=== PATIENT | male | born 1985 | race African-American/Black ===

== ENCOUNTER 2016-11-01 17:56 | Emergency (ER) | payer SELFPAY ==
[~2016-11-01] VITALS: Ht 172.7 cm; Wt 90.7 kg
[~2016-11-01 17:56] MED LIST: ACET-704 PO; AMOX1TAB61 PO; METH4TAB2 PO; NAPR500T8 PO
[2016-11-01 18:17] VITALS: BP 143/89
[2016-11-01] MEDS ORDERED: ALBUTEROL SULFATE 2.5 MG/3 ML NEBU. NEB ONE (19:00)
[2016-11-01] MEDS ORDERED: CEFTRIAXONE IM 1 GM VIAL. IM ONE (19:15)
[2016-11-01 19:18] LABS: OBC FLU VALID
[2016-11-01] MEDS ORDERED: PROAIR HFA8.5 GM INH (19:25)
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
== END 2016-11-01 19:42 | disposition home or self-care (01) ==
LOC: ER 17:56
DX: J11.1 Influenza due to unidentified influenza virus with other respiratory manifestations (principal); J45.909 Unspecified asthma, uncomplicated; Z79.899 Other long term (current) drug therapy; Z21 Asymptomatic human immunodeficiency virus [HIV] infection status
CPT/HCPCS: 87804; 94250; 94640; 96372; 99284; J0696

== ENCOUNTER 2016-12-08 15:57 | Emergency (ER) | payer SELFPAY ==
[~2016-12-08] VITALS: Ht 172.7 cm; Wt 90.7 kg
[~2016-12-08 15:57] MED LIST changes: +PROAIR HFA8.5 GM INH
[2016-12-08 16:07] VITALS: BP 124/73
[2016-12-08] MEDS ORDERED: HYDR-971 PO (16:30)
[2016-12-08] MEDS ORDERED: AMOX500C PO (16:30)
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
[2016-12-08] MEDS ORDERED: PENICILLIN G BENZATHINE LA 1,200,000 UNIT/2 ML DISP.SYRIN. IM ONE (16:45)
== END 2016-12-08 16:45 | disposition home or self-care (01) ==
LOC: ER 15:57
DX: K04.7 Periapical abscess without sinus (principal); J45.909 Unspecified asthma, uncomplicated; Z21 Asymptomatic human immunodeficiency virus [HIV] infection status; Z88.2 Allergy status to sulfonamides
CPT/HCPCS: 96372; 99283; J0561

== ENCOUNTER 2016-12-09 01:47 | Emergency (ER) | payer SELFPAY ==
[~2016-12-09] VITALS: Ht 172.7 cm; Wt 90.7 kg
[~2016-12-09 01:47] MED LIST changes: +AMOX500C PO; +HYDR-971 PO
[2016-12-09 02:10] VITALS: BP 140/85
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
[2016-12-09] MEDS ORDERED: BUPIVACAINE MPF 0.25% 10 ML VIAL. IJ ONE (02:30)
== END 2016-12-09 03:03 | disposition home or self-care (01) ==
LOC: ER 01:47
DX: K04.7 Periapical abscess without sinus (principal); L03.211 Cellulitis of face; J45.909 Unspecified asthma, uncomplicated; Z21 Asymptomatic human immunodeficiency virus [HIV] infection status; Z88.2 Allergy status to sulfonamides
CPT/HCPCS: 64400; 99284; J3490

== ENCOUNTER 2017-11-29 17:27 | Emergency (ER) | payer SELFPAY ==
[2017-11-29 18:18] LABS: BILIRUBIN,URINE NEGATIVE (NEG); CLARITY,URINE CLEAR; GLUCOSE,URINE NEGATIVE (NEG); NITRITE,URINE NEGATIVE (NEG); PH,URINE 5.5; PROTEIN,URINE NEGATIVE (NEG-TRACE)
[2017-11-29 18:29] LABS: COLOR,URINE DK YELLOW
[2017-11-29 18:30] LABS: BACTERIA,URINE 0 /HPF (0-FEW); RBC,URINE 0 /HPF (0-2); SQUAMOUS EPITHELIAL CELL,UR FEW /LPF; WBC,URINE 0 /HPF (0-4)
[2017-11-29] MEDS: cefTRIAXone IM 250 MG VIAL IM (18:47)
[2017-11-29] MEDS: ONDANSETRON ODT 4 MG TAB.RAPDIS. PO (18:48)
[2017-11-29] MEDS: AZITHROMYCIN 250 MG TABLET. PO (18:48)
[2017-11-29] MEDS: metroNIDAZOLE 500 MG TABLET PO (18:48)
== END 2017-11-29 18:51 | disposition home or self-care (01) ==
LOC: ER 17:27
DX: Z11.3 Encounter for screening for infections with a predominantly sexual mode of transmission (principal); J45.909 Unspecified asthma, uncomplicated; Z21 Asymptomatic human immunodeficiency virus [HIV] infection status; Z88.2 Allergy status to sulfonamides
CPT/HCPCS: 81001; 87491; 87591; 96372; 99284; J0696; Q0144; Q0162

== ENCOUNTER 2017-12-05 11:24 | Emergency (ER) | payer SELFPAY ==
[2017-12-05] MEDS: ONDANSETRON PF 4 MG/2 ML VIAL. IV (12:48)
[2017-12-05] MEDS: HYOSCYAMINE 0.125 MG TAB.RAPDIS PO (12:48)
[2017-12-05] MEDS: fentaNYL PF VIAL 100 MCG/2 ML VIAL IV (12:48)
[2017-12-05 12:49] LABS: ADD MAN DIFF? NO
[2017-12-05] MEDS: IV NORMAL SALINE 1000ML BAG 1,000 ML IV (12:50)
[2017-12-05 12:55] LABS: BASO % 1 % (0-3); EOS # 0.5 x10^3/uL (0.0-0.7); EOS % 8 % (0-3); HEMATOCRIT 42.5 % (39.0-53.0); HEMOGLOBIN 14.4 g/dL (13.0-17.5); LYMPH # 2.2 x10^3/uL (1.0-4.8); LYMPH % 36 % (24-48); MEAN CORPUSCULAR HEMOGLOBIN 32 pg (25-35); MEAN CORPUSCULAR HGB CONC 34 g/dL (31-37); MEAN CORPUSCULAR VOLUME 94 fL (79-100); MONO # 0.6 x10^3/uL (0.0-1.1); MONO % 9 % (0-9); NEUT # 2.8 x10^3uL (1.8-7.7); NEUT % 46 % (31-73); PLATELET COUNT 166 x10^3/uL (140-400); RED BLOOD COUNT 4.52 x10^6/uL (4.30-5.70); RED CELL DISTRIBUTION WIDTH 13.2 % (11.5-14.5)
[2017-12-05 13:00] LABS: ANION GAP 6 (6-14); BLOOD UREA NITROGEN 9 mg/dL (8-26); BUN/CREATININE RATIO 10 (6-20); CALCIUM 9.1 mg/dL (8.5-10.1); CARBON DIOXIDE 29 mmol/L (21-32); CHLORIDE 106 mmol/L (98-107); CREATININE 0.9 mg/dL (0.7-1.3); GFR 119.9; GLUCOSE 92 mg/dL (70-99); POTASSIUM 4.2 mmol/L (3.5-5.1); SODIUM 141 mmol/L (136-145)
[2017-12-05 13:06] LABS: ALBUMIN 3.5 g/dL (3.4-5.0); ALBUMIN/GLOBULIN RATIO 0.6 (1.0-1.7); ALK PHOS 123 U/L (46-116); ALT (SGPT) 60 U/L (16-63); AST (SGOT) 39 U/L (15-37); LIPASE 68 U/L (73-393); MAGNESIUM 1.7 mg/dL (1.8-2.4); TOTAL BILIRUBIN 0.3 mg/dL (0.2-1.0); TOTAL PROTEIN 8.9 g/dL (6.4-8.2)
[2017-12-05] MEDS: IOHEXOL 300 MG/ML 100ML VIAL. IV (13:44)
[2017-12-05] MEDS ORDERED: CONTRAST GIVEN MC (14:00)
[2017-12-06 02:15] LABS: C DIFF BY PCR Negative (Negative)
== END 2017-12-05 16:32 | disposition home or self-care (01) ==
LOC: ER 11:24
DX: K52.9 Noninfective gastroenteritis and colitis, unspecified (principal); J45.909 Unspecified asthma, uncomplicated; Z21 Asymptomatic human immunodeficiency virus [HIV] infection status; Z88.2 Allergy status to sulfonamides
CPT/HCPCS: 74177; 80053; 83690; 83735; 85025; 87324; 96361; 96374; 96375; 99285-25; J2405; J3010; J7030; Q9967

== ENCOUNTER 2019-01-05 13:17 | Emergency (ER) | payer MEDICAID, OTHER, SELFPAY ==
[~2019-01-05] VITALS: Ht 170.2 cm; Wt 90.7 kg
[~2019-01-05 13:17] MED LIST changes: +ALBU2.5V8 INH; +HYDR-3164 PO; -HYDR-971 PO; +METR500T PO; +ONDA4TAB10 PO; -PROAIR HFA8.5 GM INH
[2019-01-05 13:30] VITALS: BP 153/87
[2019-01-05] MEDS ORDERED: IPRATRPIUM/ALBUTEROL 0.5/2.5MG 3 ML NEBU. NEB ONE (13:45)
[2019-01-05] MEDS ORDERED: methylPREDNISolone SOD SUCC PF 125 MG/2 ML VIAL. IM ONE (13:45)
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
--- NOTE | 2019-01-05 14:03 | RAD ---
EXAM: Chest, 2 views. HISTORY: Shortness of breath. COMPARISON: None. FINDINGS: 2 views of the chest are obtained. There is no infiltrate, pleural effusion or pneumothorax. The heart is normal in size. IMPRESSION: No acute pulmonary finding. Electronically signed by: Leonie Aguila MD (01/05/2019 2:00 PM) [facility]
[2019-01-05] MEDS ORDERED: METH4TAB2 PO (14:52)
== END 2019-01-05 14:59 | disposition home or self-care (01) ==
LOC: ER 13:17
DX: J45.21 Mild intermittent asthma with (acute) exacerbation (principal); Z21 Asymptomatic human immunodeficiency virus [HIV] infection status; Z88.2 Allergy status to sulfonamides
CPT/HCPCS: 71046; 94640; 96372; 99284; J2930; J7620

== ENCOUNTER 2020-03-01 07:03 | Emergency (ER) | payer OTHER ==
[~2020-03-01] VITALS: Ht 172.7 cm; Wt 89.5 kg
[2020-03-01 07:22] VITALS: BP 140/67
[2020-03-01] MEDS ORDERED: AMOX500C PO (07:55)
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
[2020-03-01] MEDS ORDERED: IBUPROFEN 200 MG TABLET. PO ONE (08:00)
[2020-03-01] MEDS ORDERED: AMOXICILLIN 250 MG CAPSULE. PO ONE (08:00)
== END 2020-03-01 08:05 | disposition home or self-care (01) ==
LOC: ER 07:03
DX: J32.9 Chronic sinusitis, unspecified (principal); J45.909 Unspecified asthma, uncomplicated; F17.200 Nicotine dependence, unspecified, uncomplicated; Z88.2 Allergy status to sulfonamides
CPT/HCPCS: 99283